=== PATIENT | male | born 1970 | race Caucasian/White ===

== ENCOUNTER 2022-10-14 10:16 | Emergency (ER) | payer BC ==
--- NOTE | 2022-10-14 10:19 | ERPHSYRPT ---
- History of Present Illness Time Seen by Provider: 10/14/22 10:19 Source: patient, family Exam Limitations: no limitations Physician History: This is an obese 51-year-old white male patient has a history of hypertension and is taking lisinopril and is a patient of Dr. Wagner. He is right-handed. Patient was cutting down a tree prior to arrival when the tree trunk split and smashed his hands bilaterally. He presents with a laceration of the right thumb and left ring finger. He also has an abrasion on his left thigh. Patient states his tetanus is up-to-date having received a tetanus injection approximately 4 years ago. There was no head or neck injury. He has no other complaints at this time. Occurred: just prior to arrival Method of Injury: direct blow Quality: constant, aching Severity of Pain-Max: moderate Severity of Pain-Current: moderate Extremities Pain Location: hand: left, thumb: right, 4th finger: left Modifying Factors: Improves With: movement Allergies/Adverse Reactions: No Known Drug Allergies Allergy (Verified 10/14/22 10:17) Home Medications: Lisinopril 10 mg [Zestril 10 MG] 1 tab PO DAILY 10/14/22 [History] Travel Risk - International Travel Have you traveled outside of the country in past 3 weeks: No - Coronavirus Screening Are you exhibiting any of the following symptoms?: No Close contact with a COVID-19 positive Pt in past 14-21 Days: No - Review of Systems Constitutional: No Symptoms Eyes: No Symptoms Ears, Nose, & Throat: No Symptoms Respiratory: No Symptoms Cardiac: No Symptoms Abdominal/Gastrointestinal: No Symptoms Genitourinary Symptoms: No Symptoms Musculoskeletal: Injury (Bilateral hands, right thumb and left fourth finger) Skin: Other (Laceration right thumb and left fourth digit) Neurological: No Symptoms Psychological: No Symptoms Endocrine: No Symptoms Hematologic/Lymphatic: No Symptoms Immunological/Allergic: No Symptoms All Other Systems: Reviewed and Negative - Past Medical History Pertinent Past Medical History: Yes Neurological History: No Pertinent History ENT History: No Pertinent History Cardiac History: No Pertinent History Respiratory History: No Pertinent History Endocrine Medical History: No Pertinent History Musculoskeletal History: Fractures GI Medical History: No Pertinent History History: No Pertinent History Psycho-Social History: No Pertinent History Male Reproductive Disorders: No Pertinent History Other Medical History: right ankle - Past Surgical History Past Surgical History: Yes Neuro Surgical History: No Pertinent History Cardiac: No Pertinent History Respiratory: No Pertinent History Gastrointestinal: No Pertinent History Genitourinary: No Pertinent History Musculoskeletal: Orthopedic Surgery Male Surgical History: No Pertinent History Other Surgical History: had bone spur removed from right femur - Social History Smoking Status: Never smoker Exposure to second hand smoke: No Drug Use: none - Nursing Vital Signs Nursing Vital Signs: Initial Vital Signs Temperature 96.4 F 10/14/22 10:19 Pulse Rate 79 10/14/22 10:19 Respiratory Rate 18 10/14/22 10:19 Blood Pressure 148/86 10/14/22 10:19 O2 Sat by Pulse Oximetry 98 10/14/22 10:19 Pain Scale Pain Intensity 0 - Physical Exam General Appearance: mild distress, alert, anxiety, obese Eyes, Ears, Nose, Throat Exam: normal ENT inspection, moist mucous membranes Neck Exam: normal inspection, non-tender, supple, full range of motion Cardiovascular/Respiratory Exam: chest non-tender, no respiratory distress Abdominal Exam: non-tender Back Exam: normal inspection, normal range of motion, No CVA tenderness, No vertebral tenderness Shoulder Exam: normal inspection, non-tender, no evidence of injury, normal ROM Elbow/Forearm Exam: normal inspection, non-tender, no evidence of injury, normal ROM Wrist Exam: normal inspection, non-tender, no evidence of injury, normal ROM Hand Exam: normal ROM, bone tenderness, laceration (2.5 cm right thumb pad laceration, 1 cm dorsal aspect left fourth digit laceration), soft tissue tenderness, swelling, No deformity Neuro/Tendon Exam: normal sensation, normal motor functions, normal tendon functions, responds to pain, no evidence tendon injury Mental Status Exam: alert, oriented x 3, cooperative Skin Exam: abrasion (Left anterior thigh) SpO2 Interpretation: normal O2 Delivery: Room Air Procedures - Joint Reduction Time of Procedure: 12:05 Timeout: Performed Joint Reduction Site: Right, 1st digit, DIP Conscious Sedation: No Reduction Attempts: 1 Pre-Procedure Neurovascular Exam: neurovascular intact Post Procedure Neurovascular Exam: neurovascular intact Progress: Patient tolerated procedure well - Course Nursing assessment & vital signs reviewed: Yes Ordered Tests: Active Orders 24 hr Category Date Time Status Wound Care STAT Care 10/14/22 10:47 Active HAND (2 VIEW) Stat Exams 10/14/22 12:16 Taken HAND (MINIMUM 3 VIEWS) Stat Exams 10/14/22 10:48 Completed HAND (MINIMUM 3 VIEWS) Stat Exams 10/14/22 10:49 Completed Medication Summary Discontinued Medications Generic Name Dose Route Start Last Admin Trade Name Tod PRN Reason Stop Dose Admin Lidocaine HCl Confirm 10/14/22 10:43 Lidocaine Hcl 1% 20 Ml Mdv 20 Ml Ml Administered 10/14/22 10:44 Dose 10 ml .ROUTE .STK-MED ONE Lidocaine HCl 10 ml 10/14/22 10:47 10/14/22 11:06 Lidocaine Hcl 1% 20 Ml Mdv 20 Ml Ml IJ 10/14/22 10:48 10 ml STAT ONE Administration - Progress Progress: improved, pain not gone completely Progress Note: 10/14/22 12:16 Patient's medical issue is 1 of moderate complexity based on the patient's mechanism of injury, multiple areas of injury, necessity for reduction of a joint, review of the patient's medication list, review of the medical case and a llergy list, history of present illness, physical findings on examination. The work-up included x-ray of the patient's right and left hands. The left x-ray shows a nondisplaced metacarpal head fracture. The right x-ray shows a question of subluxation/dislocation of the first DI P joint. There are also lacerations that were repaired. See that procedure note. In addition, it was necessary to reduce the dislocation of the right hand first DIP joint. The patient was placed in a right hand Ortho-Glass splint. I reviewed the results of the x-rays of bilateral hands and you see the report that I reviewed. Discharge plan includes patient following up with hand surgeon/orthopedic clinic of choice. We did discuss him using the [facility] orthopedic clinic tomorrow morning as a walk-in clinic. Patient will also have prescription for Keflex and Percocet sent to his pharmacy. Patient is to keep the dressings in place for 24 hours. He can then remove the dressings and wash the areas of laceration repair with soap and water. He is to blot dry, use a hairdryer and reapply antibiotic ointment of choice and cover with a bandage. 10/14/22 12:30 The right hand reduction (second) x-ray was interpreted by me. There is successful reduction of the first digit dislocation. Counseled pt/family regarding: diagnosis, need for follow-up, rad results Medical Desision Making - Independent Historian Additional History obtained from: Spouse - Discussion of managment Reviewed:: Test results, Need for additional workup Agreed on:: Treatment plan, need for follow-up - Diagnostic Testing Diagnostic test were ordered, analyzed, and reviewed by me: Yes Radiological Interpretation: Interpreted by me, Reviewed by me, Teleradiologist Report - Risk of complications The pt has a mod risk of morbidity or mortality based on: Need for prescription drug management - Departure Departure Disposition: Home Clinical Impression: Fracture of metacarpal of left hand, closed, Dislocation of right thumb, Laceration of left hand, Laceration of right hand Condition: Stable Critical Care Time: No Referrals: MARIE WAGNER MD [Primary Care Provider] - Follow up/PCP as directed Additional Instructions: Keep the dressings in place for 24 hours. After 24 hours may remove the dressings covering the laceration repair sites and wash the sites with soap and water, blotting dry or use a hairdryer. You may then reapply antibiotic ointment of choice and cover with a nonstick bandage. Follow-up with your [facility] orthopedic clinic or your orthopedic surgeon of choice tomorrow. The [facility] clinic is open 8 AM to 10 AM. Is a walk-in clinic and you do not need an appointment. Take your antibiotics and pain medicine as prescribed. Forms: Work/School Release Form Prescriptions: Oxycodone HCl/Acetaminophen [Percocet 5-325 mg Tablet] 1 each PO Q8H PRN PRN #6 tablet MDD 3 PRN Reason: Moderate To Severe Pain Cephalexin Mh 500 mg [Keflex 500 mg] 500 mg PO TID #21 cap
[2022-10-14] MEDS ORDERED: XYLOCAINE 1% HCL 20 ML MDV ONE (10:43)
[2022-10-14] MEDS ORDERED: XYLOCAINE 1% HCL 20 ML MDV IJ ONE (10:47)
[2022-10-14 11:36] VITALS: BP 140/80; PULSE 80; O2SAT 97
--- NOTE | 2022-10-14 11:51 | XRAY ---
Indication: 4th finger laceration. Comparison: None 3 view left hand demonstrates nondisplaced 4th metacarpal head fracture. Incidental mild degenerative changes all IP joints and subcentimeter 3rd PIP heterotopic ossification. No other bony, articular, or soft tissue abnormalities.
--- NOTE | 2022-10-14 11:53 | XRAY ---
Indication: Thumb laceration. Comparison: None 3 view right hand obtained. Query subluxation/dislocation 1st IP joint with soft tissue swelling. Minimal degenerative changes all IP joints. No other bony, articular, or soft tissue abnormalities.
[2022-10-14] MEDS ORDERED: PERCOCET TABLET 5/325MG PO STA (12:35)
--- NOTE | 2022-10-14 12:36 | XRAY ---
Indication: Post reduction. Comparison: Taken earlier in the day. 2 view right hand demonstrates successful reduction 1st IP joint subluxation/dislocation. No other bony, articular, or soft tissue abnormalities.
[2022-10-14] MEDS ORDERED: PERCOCET TABLET 5/325MG ONE (12:43)
[2022-10-14] MEDS ORDERED: BACIGUENT PACKET ONE (13:08)
== END 2022-10-14 12:50 | disposition home or self-care (01) ==
LOC: ED 10:16
DX: S62.395A Other fracture of fourth metacarpal bone, left hand, initial encounter for closed fracture (principal); S63.124A Dislocation of interphalangeal joint of right thumb, initial encounter; S61.412A Laceration without foreign body of left hand, initial encounter; S61.411A Laceration without foreign body of right hand, initial encounter; W20.8XXA Other cause of strike by thrown, projected or falling object, initial encounter; I10 Essential (primary) hypertension; Z79.891 Long term (current) use of opiate analgesic; Z79.899 Other long term (current) drug therapy
CPT/HCPCS: 12002; 26770; 73120; 73130; 96372; 99283; A9270-GY